=== PATIENT | male | born 1950 | race Caucasian/White ===

== ENCOUNTER → 2018-04-22 | Outpatient (CLI) | payer OTHER ==
[~2018-04-22] MED LIST: FENTANYL PF 100 MCG/2ML ONE; GABA300C10 PO; GABAPENTIN PO; IBUP200C8 PO; MIDAZOLAM 1 MG/ML, 2ML ONE
[2018-04-22 10:55] LABS: MICROSCOPIC NOT IND
[2018-04-22 10:58] LABS: CULTURE INDICATED? NO
[2018-04-22 11:09] LABS: BASOPHILS # (AUTO) 0.02 x10^3/uL (0-0.1); BASOPHILS % (AUTO) 1 % (0-1); EOSINOPHILS # (AUTO) 0.03 x10^3/uL (0-0.4); EOSINOPHILS % (AUTO) 1 % (1-7); HCT (SEDRATE) 42.1 % (39.2-51.8); LYMPHOCYTES # (AUTO) 1.25 x10^3/uL (1-3.4); LYMPHOCYTES % (AUTO) 33 % (22-44); MD NO; MEAN CORPUSCULAR HEMOGLOBIN 30.6 pg (27.5-34.5); MEAN CORPUSCULAR HGB CONC 34.7 g/dL (33.2-36.2); MEAN CORPUSCULAR VOLUME 88.2 fL (81-97); MEAN PLATELET VOLUME 8.1 fL (7.4-10.4); MONOCYTES # (AUTO) 0.29 x10^3/uL (0.2-0.8); MONOCYTES % (AUTO) 8 % (2-9); NEUTROPHILS # (AUTO) 2.25 x10^3/uL (1.8-6.8); NEUTROPHILS % (AUTO) 59 % (42-75); PLATELET COUNT 173 x10^3/uL (130-400); RED BLOOD COUNT 4.78 x10^6/uL (4.38-5.82); RED CELL DISTRIBUTION WIDTH 13.3 % (9.4-14.8)
[2018-04-22 11:19] LABS: INTERNATIONAL NORMALIZED RATIO 1.09 (0.93-1.1); PROTHROMBIN TIME 11.2 Seconds (9.6-11.5)
[2018-04-22 11:20] LABS: ALANINE AMINOTRANSFERASE 40 U/L (12-78); ALBUMIN 3.8 g/dL (3.4-5.0); ANION GAP 4 mmol/L (5-15); CALCIUM 8.7 mg/dL (8.5-10.1); CHLORIDE 109 mmol/L (98-107); CREATININE 0.83 mg/dL (0.7-1.3)
[2018-04-22 11:22] LABS: ALKALINE PHOSPHATASE 54 U/L (45-117); BILIRUBIN,TOTAL 1.4 mg/dL (0.2-1.0)
== END | disposition home or self-care (01) ==
LOC: STAR 09:53
PROVIDERS: ATTEND Orthopaedic Surgery Orthopaedic Surgery of the Spine
DX: Z01.818 Encounter for other preprocedural examination (principal); M54.16 Radiculopathy, lumbar region
CPT/HCPCS: 36415; 71046; 80053; 80074; 81003; 85025; 85610; 85651; 85730; 87806; 93005; G0475

== ENCOUNTER 2018-05-07 05:20 | Day surgery (SDC) | payer OTHER ==
[~2018-05-07] VITALS: Ht 177.8 cm; Wt 68.5 kg
[~2018-05-07 05:20] MED LIST changes: -FENTANYL PF 100 MCG/2ML ONE; -GABA300C10 PO; -MIDAZOLAM 1 MG/ML, 2ML ONE
[2018-05-07] MEDS ORDERED: LACTATED RINGERS 1,000 ML IV SCH (06:09)
[2018-05-07 06:34] VITALS: BP 124/73
[2018-05-07] MEDS ORDERED: GABA300C10 PO (06:38)
[2018-05-07] MEDS ORDERED: BUPIVACAINE/PF 0.5% ONE (07:06)
[2018-05-07] MEDS ORDERED: THROMBIN 5,000 UNIT VIAL TP ONE (07:06)
[2018-05-07] MEDS ORDERED: LIDOCAINE/PF 1%-EPI 1:200K, 30 ML ONE (07:06)
[2018-05-07] MEDS ORDERED: VANCOMYCIN 1,000 MG ONE (07:07)
[2018-05-07] MEDS ORDERED: morphine SULFATE/PF 1 MG/ML, 10ML ONE (07:07)
[2018-05-07] MEDS ORDERED: EPINEPHRINE 1 MG/ML, 1ML ONE (07:07)
[2018-05-07] MEDS ORDERED: FENTANYL PF 100 MCG/2ML ONE (07:07)
[2018-05-07] MEDS ORDERED: BACITRACIN 50,000 UNIT ONE (07:09)
[2018-05-07] MEDS ORDERED: MIDAZOLAM 1 MG/ML, 2ML IV PRN (09:30)
[2018-05-07] MEDS ORDERED: FENTANYL PF 100 MCG/2ML IV PRN (09:30)
[2018-05-07] MEDS ORDERED: HYDROmorphone 1 MG/ML, 1ML IV PRN (09:30)
[2018-05-07] MEDS ORDERED: OXYcodone 5 MG/5 ML ORAL.SOL UDC PO PRN (09:30)
[2018-05-07] MEDS ORDERED: ONDANSETRON 2MG/ML, 2ML IVPush PRN (09:30)
[2018-05-07] MEDS ORDERED: LABETALOL 5MG/ML, 20ML IV PRN (09:30)
[2018-05-07] MEDS ORDERED: MEPERIDINE/PF 25MG/0.5ML IVPush PRN (09:30)
[2018-05-07] MEDS ORDERED: OXYcodone 5 MG/5 ML ORAL.SOL UDC ONE (10:34)
[2018-05-07] MEDS ORDERED: ACETAMINOPHEN 325 MG TABLET ONE (10:34)
[2018-05-07] MEDS ORDERED: ACETAMINOPHEN 650 MG/20.3 ML UDC ONE (10:34)
[2018-05-07] MEDS ORDERED: ACETAMINOPHEN 325 MG TABLET PO PRN (11:00)
== END 2018-05-07 13:27 | disposition home or self-care (01) ==
LOC: OUT 05:20
PROVIDERS: ATTEND Orthopaedic Surgery Orthopaedic Surgery of the Spine
DX: M48.061 Spinal stenosis, lumbar region without neurogenic claudication (principal); M51.16 Intervertebral disc disorders with radiculopathy, lumbar region; J44.9 Chronic obstructive pulmonary disease, unspecified; Z87.891 Personal history of nicotine dependence; Z98.890 Other specified postprocedural states; Z79.899 Other long term (current) drug therapy
CPT/HCPCS: 63030; 63047; 72100; J0171; J2250; J3010; J3490; J7120; J2274; J3370